=== PATIENT | male | born 1960 | race Caucasian/White ===

== ENCOUNTER 2019-05-04 08:38 | Emergency (ER) | payer OTHER ==
[2019-05-04] MEDS ORDERED: Diltiazem 50 MG/10 ML SDV IVPUSH ONE ×3 (08:58→09:29)
[2019-05-04] MEDS ORDERED: Sodium Chloride 0.9% 1,000 ML IV SCH (09:00)
--- NOTE | 2019-05-04 09:02 | EDM.PDOC ---
ED HPI GENERAL MEDICAL PROBLEM - General Chief Complaint: Cardiovascular Problem Stated Complaint: AFIB Time Seen by Provider: 05/04/19 08:47 Source of Information: Reports: Patient History Limitations: Reports: No Limitations - History of Present Illness INITIAL COMMENTS - FREE TEXT/NARRATIVE: Patient is a 58-year-old male who presents with complaints of "Afib". He states that he does have a history of A. fib with an ablation done approximate one year ago. He awoke around 4:00 this morning and was feeling fine and went back to sleep. States he woke up prior to coming to the ER and could feel palpitations in his chest. He put on his apple watch it showed that he was tachycardic. He states after his ablation 1 year ago he did go back into a normal sinus rhythm and has been that way ever since. He is currently on 240 mg of diltiazem extended release as well as Xarelto 20 mg daily and he did take all of his home medications this morning. He did consume 6 alcoholic drinks last night which she states is 3 more than he would normally drink. Other cardiac history is positive for mitral valve repair. He has no history of IN or chronic lung disease. He denies any shortness of breath or chest pain. States his only symptom is that he can feel the palpitations. - Related Data Allergies Allergy/AdvReac Type Severity Reaction Status Date / Time No Known Allergies Allergy Verified 05/04/19 08:43 Home Meds: Home Meds Diltiazem [Dilacor XR] 240 mg PO DAILY 05/04/19 [History] Fish Oil/[place]-3 Fatty Acids [Fish Oil 1,000 MG] 1,000 mg PO DAILY 05/04/19 [ History] Furosemide [Lasix] 0 mg PO DAILY 05/04/19 [History] Potassium Chloride 10 meq PO DAILY 05/04/19 [History] Rivaroxaban [Xarelto] 20 mg PO DAILY 05/04/19 [History] ED ROS GENERAL - Review of Systems Review Of Systems: See Below Constitutional: Reports: No Symptoms HEENT: Reports: No Symptoms Respiratory: Reports: No Symptoms Cardiovascular: Reports: Palpitations. Denies: Chest Pain, Dyspnea on Exertion Endocrine: Reports: No Symptoms ED EXAM, GENERAL - Physical Exam Exam: See Below Exam Limited By: No Limitations General Appearance: Alert, WD/WN, No Apparent Distress Respiratory/Chest: No Respiratory Distress, Lungs Clear, Normal Breath Sounds, No Accessory Muscle Use, Chest Non-Tender Cardiovascular: No Edema, No Murmur, Tachycardia, Irregularly Irregular Neurological: Alert, Oriented, Normal Cognition Psychiatric: Normal Affect, Normal Mood Skin Exam: Warm, Dry, Intact, Normal Color, No Rash EKG INTERPRETATION EKG Date: 05/04/19 Time: 08:41 Rhythm: Other (questionable flutter with 2:1 conduction) Rate (Beats/Min): 141 [place]: Normal P-Wave: Present (questionable flutter wave) QRS: Normal ST-T: Normal QT: Prolonged (311) Comparison: NA - No Prior EKG EKG Interpretation Comments: abnormal R-wave progression, late transition Course - Vital Signs Last Recorded V/S: Last Vital Signs Temp 97.5 F 05/04/19 08:45 Pulse 140 H 05/04/19 08:45 Resp 20 05/04/19 08:45 BP 138/100 H 05/04/19 08:45 Pulse Ox 98 05/04/19 08:45 - Orders/Labs/Meds Orders: Active Orders 24 hr Category Date Time Status EKG Documentation Completion [RC] STAT Care 05/04/19 09:02 Active EKG Documentation Completion [RC] STAT Care 05/04/19 09:19 Active EKG Documentation Completion [RC] STAT Care 05/04/19 09:45 Active Chest 1V Frontal [CR] Stat Exams 05/04/19 09:02 Taken Sodium Chloride 0.9% [Normal Saline] 1,000 ml Med 05/04/19 09:00 Active IV ASDIRECTED Medication Orders Sodium Chloride (Normal Saline) 1,000 mls @ 999 mls/hr IV ASDIRECTED RODRIGUEZ Last Admin: 05/04/19 09:11 Dose: 999 mls/hr Labs: Laboratory Tests 05/04/19 05/04/19 Range/Units 08:45 08:45 WBC 4.99 (4.23-9.07) K/mm3 RBC 5.14 (4.63-6.08) M/mm3 Hgb 16.2 (13.7-17.5) gm/dl Hct 44.6 (40.1-51.0) % MCV 86.8 (79.0-92.2) fl MCH 31.5 (25.7-32.2) pg MCHC 36.3 H (32.2-35.5) g/dl RDW Std Deviation 39.9 (35.1-43.9) fL Plt Count 204 (163-337) K/mm3 MPV 9.4 (9.4-12.3) fl Neut % (Auto) 70.8 H (34.0-67.9) % Lymph % (Auto) 12.8 L (21.8-53.1) % [place] % (Auto) 9.8 (5.3-12.2) % Eos % (Auto) 5.8 (0.8-7.0) Baso % (Auto) 0.6 (0.1-1.2) % Neut # (Auto) 3.53 (1.78-5.38) K/mm3 Lymph # (Auto) 0.64 L (1.32-3.57) K/mm3 [place] # (Auto) 0.49 (0.30-0.82) K/mm3 Eos # (Auto) 0.29 (0.04-0.54) K/mm3 Baso # (Auto) 0.03 (0.01-0.08) K/mm3 Sodium 144 (136-145) mEq/L Potassium 3.7 (3.5-5.1) mEq/L Chloride 107 (98-107) mEq/L Carbon Dioxide 26 (21-32) mEq/L Anion Gap 14.7 (5-15) BUN 16 (7-18) mg/dL Creatinine 1.1 (0.7-1.3) mg/dL Est Cr Clr Drug Dosing 76.06 mL/min Estimated GFR (MDRD) > 60 (>60) mL/min BUN/Creatinine Ratio 14.5 (14-18) Glucose 144 H (74-106) mg/dL Calcium 8.6 (8.5-10.1) mg/dL Total Bilirubin 0.5 (0.2-1.0) mg/dL AST 26 (15-37) U/L ALT 38 (16-63) U/L Alkaline Phosphatase 69 (46-116) U/L Troponin I 0.054 (0.00-0.056) ng/mL Total Protein 7.5 (6.4-8.2) g/dl Albumin 4.0 (3.4-5.0) g/dl Globulin 3.5 gm/dL Albumin/Globulin Ratio 1.1 (1-2) TSH 3rd Generation 1.369 (0.358-3.74) uIU/mL Meds: Medications Generic Name Dose Route Start Last Admin Trade Name Freq PRN Reason Stop Dose Admin Sodium Chloride 1,000 mls @ 999 mls/hr 05/04/19 09:00 05/04/19 09:11 Normal Saline IV 999 mls/hr ASDIRECTED RODRIGUEZ Administration Discontinued Medications Generic Name Dose Route Start Last Admin Trade Name Freq PRN Reason Stop Dose Admin Diltiazem HCl 10 mg 05/04/19 08:58 05/04/19 09:04 Cardizem IVPUSH 05/04/19 08:59 10 mg ONETIME ONE Administration Diltiazem HCl 10 mg 05/04/19 09:11 05/04/19 09:14 Cardizem IVPUSH 05/04/19 09:12 10 mg ONETIME ONE Administration Diltiazem HCl 20 mg 05/04/19 09:29 05/04/19 09:40 Cardizem IVPUSH 05/04/19 09:30 20 mg ONETIME ONE Administration - Re-Assessments/Exams Free Text/Narrative Re-Assessment/Exam: On personnel monitor, patient's rhythm does look regular and initial EKG does read sinus tachycardia at 141. I feel that with his history this is likely an atrial flutter with a 2-1 conduction which gives the appearance of regular P waves. I have ordered a 1 L bolus of normal saline as well as 10 mg of IV Cardizem. We'll try to slow his rhythm down and repeat the EKG. I have also ordered a CBC, CMP, troponin, and CXR. 05/04/19 09:10 Patient's heart rate remains in the 140s after the initial dose of Cardizem 10 mg IV. Her pressure continues to be stable. I will repeat a dose of Cardizem 10 mg IV now. 05/04/19 09:20 Patient's heart rate now varies from 110's to 130's. We did repeat the EKG which does show an atrial flutter at 115. 05/04/19 0928 HR continues to maintain a-flutter above 100. BP remains stable. I have ordered Cardizem 20mg IV to be given now. 05/04/19 10:21 Patient has been maintaining a heart rate from 70-90 for the last 45 minutes approximately. Lab work is unremarkable. Troponin is on the high end of normal at 0.054. Patient continues to be asymptomatic and is having no chest pain, shortness of breath, diaphoresis, or dizziness. It is likely that his troponin is due to demand ischemia. Discussed the options of trending the troponin with the patient to ensure they begin to trend downward; however, he does not want to stay to have that done as he has plans afternoon and he states that he feels fine and has had no symptoms of an IN. He states that he is staying only a couple blocks away and if he has any worsening symptoms he can return immediately. He is already anticoagulated as he takes Xarelto 20 mg daily. He also has taken his daily Cardizem medication which may keep his rate controlled. We will continue to watch him until around 11:00. If his heart rate remains controlled, we will let him go home. He does have a heart monitor on his watch and states that if the rate increases or if he develops any symptoms of chest pain, shortness of breath or dizziness he will return to the ER immediately. 05/04/19 11:03 Patient's heart rates been maintaining in the 80s, however is still atrial flutter. He continues to be asymptomatic and states that he feels good. He is comfortable with going home with instructions to return if anything should worsen. He will follow-up with his primary care and shaker operator when he gets back to [place]. Discharge instructions as noted. Departure - Departure Time of Disposition: 11:04 Disposition: Home, Self-Care 01 Condition: Fair Clinical Impression: Atrial flutter Qualifiers: Atrial flutter type: unspecified Qualified Code(s): I48.92 - Unspecified atrial flutter Instructions: Atrial Flutter Referrals: PCP,Not In Area [Primary Care Provider] - Forms: ED Department Discharge Additional Instructions: You were seen in the emergency department this morning for help with patient's any fast heart rate. You were found to be in atrial flutter in the 140s. You were given a total of 1 L of IV fluids and 40 mg of IV Cardizem. Your heart rate did slow down to the 80s but does remain in atrial flutter. As we discussed, your daily Cardizem will likely keep the rate controlled or you may convert to normal sinus rhythm at some point. We recommend that you monitor your heart rate and blood pressure at home. If you experience any increases in your heart rate or any chest pain, shortness of breath, dizziness, or any other abnormal symptoms, return to the emergency Department immediately. We recommend that when you return to [place] you follow-up with your primary care provider and/or shaker operator. Unfortunately do not have the ability to send the records directly to your provider through the computer system, however, they can request a copy be sent to them. Sepsis Event Note - Evaluation Sepsis Screening Result: No Definite Risk - Focused Exam Vital Signs: Vital Signs Temp Pulse Resp BP Pulse Ox 05/04/19 08:45 97.5 F 140 H 20 138/100 H 98 Date Exam was Performed: 05/04/19 Time Exam was Performed: 11:19 - My Orders Last 24 Hours: My Active Orders 05/04/19 09:00 Sodium Chloride 0.9% [Normal Saline] 1,000 ml IV ASDIRECTED 05/04/19 09:02 EKG Documentation Completion [RC] STAT Chest 1V Frontal [CR] Stat 05/04/19 09:19 EKG Documentation Completion [RC] STAT 05/04/19 09:45 EKG Documentation Completion [RC] STAT - Assessment/Plan Last 24 Hours: My Active Orders 05/04/19 09:00 Sodium Chloride 0.9% [Normal Saline] 1,000 ml IV ASDIRECTED 05/04/19 09:02 EKG Documentation Completion [RC] STAT Chest 1V Frontal [CR] Stat 05/04/19 09:19 EKG Documentation Completion [RC] STAT 05/04/19 09:45 EKG Documentation Completion [RC] STAT
--- NOTE | 2019-05-06 07:12 | CR ---
Chest: Frontal view of the chest was obtained. Comparison: Previous chest x-ray of 07/18/10. Heart size and mediastinum are stable. Previous sternotomy and prosthetic heart valve are noted. Lungs are clear with no acute parenchymal change. Bony structures are grossly intact. Impression: 1. Nothing acute is seen on frontal chest x-ray. Diagnostic code #2 This report was dictated in [place] Standard Time
== END 2019-05-04 11:25 | disposition home or self-care (01) ==
LOC: JD.ED 08:38
DX: I48.92 Unspecified atrial flutter (principal); Z79.01 Long term (current) use of anticoagulants; Z79.899 Other long term (current) drug therapy
CPT/HCPCS: 36415; 71045; 80053; 84443; 84484; 85025; 93005; 96361; 96374; 96376; 99285; J3490; J7030

== ENCOUNTER 2020-03-29 21:28 | Emergency (ER) | payer OTHER ==
[2020-03-29] MEDS ORDERED: HYDROmorphone 1 MG/ML Syringe IVPUSH STA (22:06)
[2020-03-29] MEDS ORDERED: Ondansetron 4 MG/2 ML SDV IVPUSH ONE (22:06)
--- NOTE | 2020-03-29 22:12 | EDM.PDOC ---
ED HPI GENERAL MEDICAL PROBLEM - General Chief Complaint: Abdominal Pain Stated Complaint: RT SIDE FLANK PAIN/ABDOMINAL PAIN, MINOR CHILLS Time Seen by Provider: 03/29/20 21:52 Source of Information: Reports: Patient History Limitations: Reports: No Limitations - History of Present Illness INITIAL COMMENTS - FREE TEXT/NARRATIVE: Mr. Plaza is a very pleasant 59-year-old gentleman who now presents to the ED with right upper quadrant abdominal pain since , 03/26/2020. He is unable to describe the character of the pain, other than "It's just there". He states that he also feels pain in his right flank. He has not been able to identify any modifiers to his pain, although he states that it did get worse after he had dinner consisting of a steak and mashed potatoes around 17:30 tonight. No associated nausea, vomiting, constipation, diarrhea, or urinary symptoms, however, he states that he has had intermittent slight chills for the past week or so. No prior similar symptoms. Of note, the patient states that he underwent a cholecystectomy around 1999. The patient states that he took some Tums around 20:30 night, which did not help his symptoms. Here in the ED, the patient's initial BP is found to be elevated at 171/109, otherwise, he is hemodynamically stable, afebrile, saturating 98% on room air. Prior to a few days ago, the patient denies having a recent fever, chills, sore throat, ear pain, nasal or sinus congestion, cough, dyspnea, chest pain, palpitations, nausea, vomiting, constipation, diarrhea, abdominal pain, urinary symptoms, recent weight gain or weight loss, recent bloody bowel movements or black bowel movements, recent joint aches, headaches, or rashes. The patient's PCP is in [place]. He already received an influenza vaccine this season. Right Abdominal Pain Score (Numeric/FACES): 3 - Related Data Allergies Allergy/AdvReac Type Severity Reaction Status Date / Time No Known Allergies Allergy Verified 03/29/20 21:52 Home Meds: Home Meds Diltiazem [Dilacor XR] 240 mg PO DAILY 05/04/19 [History] Fish Oil/[place]-3 Fatty Acids [Fish Oil 1,000 MG] 1,000 mg PO DAILY 05/04/19 [History] Furosemide [Lasix] 20 mg PO DAILY 05/04/19 [History] Rivaroxaban [Xarelto] 20 mg PO DAILY 05/04/19 [History] Past Medical History Cardiovascular History: Reports: Afib Musculoskeletal History: Reports: Fracture, Other (See Below) Other Musculoskeletal History: right knee surgery, r femur repair Endocrine/Metabolic History: Reports: Obesity/BMI 30+ - Past Surgical History HEENT Surgical History: Reports: Tonsillectomy Cardiovascular Surgical History: Reports: Cardiac Ablation, Other (See Below) Other Cardiovascular Surgeries/Procedures: valve repair, mitral. GI Surgical History: Reports: Cholecystectomy (around 1999) Social & Family History - Tobacco Use Tobacco Use Status *Q: Never Tobacco User Second Hand Smoke Exposure: No - Caffeine Use Caffeine Use: Reports: Coffee - Alcohol Use Days Per Week of Alcohol Use: 4 Number of Drinks Per Day: 3 Total Drinks Per Week: 12 - Recreational Drug Use Recreational Drug Use: No ED ROS GENERAL - Review of Systems Review Of Systems: Comprehensive ROS is negative, except as noted in HPI. ED EXAM, GENERAL - Physical Exam Exam: See Below Exam Limited By: No Limitations General Appearance: Alert, WD/WN, No Apparent Distress Eye Exam: Bilateral Eye: EOMI, Normal Inspection Ears: Normal External Exam, Hearing Grossly Normal Nose: Normal Inspection Throat/Mouth: Normal Inspection, Normal Lips, Normal Voice, No Airway Compromise Head: Atraumatic, Normocephalic Neck: Normal Inspection, Full Range of Motion Respiratory/Chest: No Respiratory Distress, Lungs Clear, Normal Breath Sounds, No Accessory Muscle Use Cardiovascular: Normal Peripheral Pulses, Regular Rate, Rhythm, No Gallop, No JVD, No Murmur, No Rub Peripheral Pulses: 3+: Radial (L), Radial (R) GI/Abdominal: Normal Bowel Sounds, Soft, No Organomegaly, No Distention, No Abnormal Bruit, No Mass, Tender (Quality patient reports the greatest pain felt in his far right abdomen, he is most tender to his right upper quadrant. No tenderness elsewhere.) Back Exam: Normal Inspection, Full Range of Motion. No: CVA Tenderness (L), CVA Tenderness (R) (The patient is able to identify pain felt in his right flank, but denies CVA tenderness) Extremities: Normal Inspection, Normal Range of Motion, No Pedal Edema, Normal Capillary Refill Neurological: Alert, Oriented, Normal Cognition, No Motor/Sensory Deficits Psychiatric: Normal Affect Skin Exam: Warm, Dry, Intact, Normal Color, No Rash Course - Vital Signs Last Recorded V/S: Last Vital Signs Temp 36.7 C 03/29/20 21:50 Pulse 64 03/29/20 21:50 Resp 20 03/29/20 21:50 BP 171/109 H 03/29/20 21:50 Pulse Ox 98 03/29/20 21:50 - Orders/Labs/Meds Orders: Active Orders 24 hr Category Date Time Status Abdomen Pelvis w Cont [CT] Stat Exams 03/29/20 22:06 Taken Sodium Chloride 0.9% [Normal Saline] 1,000 ml Med 03/29/20 22:15 Active IV ASDIRECTED Sodium Chloride 0.9% [Normal Saline] 100 ml Med 03/29/20 23:15 Active IV ASDIRECTED Medication Orders Sodium Chloride (Normal Saline) 1,000 mls @ 150 mls/hr IV ASDIRECTED RODRIGUEZ Last Admin: 03/29/20 22:24 Dose: 150 mls/hr Documented by: EVONCOU Sodium Chloride (Normal Saline) 100 mls @ 60 mls/hr IV ASDIRECTED RODRIGUEZ Last Admin: 03/30/20 01:08 Dose: 60 mls/hr Documented by: ONEIGIN Labs: Laboratory Tests 03/29/20 03/29/20 Range/Units 22:20 22:20 WBC 4.64 (4.23-9.07) K/mm3 RBC 4.64 (4.63-6.08) M/mm3 Hgb 14.7 D (13.7-17.5) gm/dl Hct 41.3 (40.1-51.0) % MCV 89.0 (79.0-92.2) fl MCH 31.7 (25.7-32.2) pg MCHC 35.6 H (32.2-35.5) g/dl RDW Std Deviation 40.9 (35.1-43.9) fL Plt Count 191 (163-337) K/mm3 MPV 9.1 L (9.4-12.3) fl Neutrophils % (Manual) 69 H (40-60) % Band Neutrophils % 2 (0-10) % Lymphocytes % (Manual) 14 L (20-40) % Atypical Lymphs % 0 % Monocytes % (Manual) 12 H (2-10) % Eosinophils % (Manual) 3 (0.8-7.0) % Basophils % (Manual) 0 L (0.2-1.2) Platelet Estimate Adequate RBC Morph Comment Normal Sodium 141 (136-145) mEq/L Potassium 3.7 (3.5-5.1) mEq/L Chloride 105 (98-107) mEq/L Carbon Dioxide 29 (21-32) mEq/L Anion Gap 10.7 (5-15) BUN 22 H (7-18) mg/dL Creatinine 1.3 (0.7-1.3) mg/dL Est Cr Clr Drug Dosing 63.55 mL/min Estimated GFR (MDRD) 56 (>60) mL/min BUN/Creatinine Ratio 16.9 (14-18) Glucose 105 (80-115) mg/dL Calcium 8.8 (8.5-10.1) mg/dL Magnesium 1.8 (1.8-2.4) mg/dl Total Bilirubin 0.6 (0.2-1.0) mg/dL AST 25 (15-37) U/L ALT 31 (16-63) U/L Alkaline Phosphatase 57 (46-116) U/L Total Protein 6.8 (6.4-8.2) g/dl Albumin 3.7 (3.4-5.0) g/dl Globulin 3.1 gm/dL Albumin/Globulin Ratio 1.2 (1-2) Lipase 71 L (73-393) U/L Meds: Medications Generic Name Dose Route Start Last Admin Trade Name Freq PRN Reason Stop Dose Admin Sodium Chloride 1,000 mls @ 150 mls/hr 03/29/20 22:15 03/29/20 22:24 Normal Saline IV 150 mls/hr ASDIRECTED RODRIGUEZ Administration Sodium Chloride 100 mls @ 60 mls/hr 03/29/20 23:15 03/30/20 01:08 Normal Saline IV 60 mls/hr ASDIRECTED RODRIGUEZ Administration Discontinued Medications Generic Name Dose Route Start Last Admin Trade Name Freq PRN Reason Stop Dose Admin Hydromorphone HCl 0.5 mg 03/29/20 22:06 03/29/20 22:24 Dilaudid IVPUSH 03/29/20 22:07 0.5 mg ONETIME STA Administration Iopamidol 100 ml 03/29/20 23:09 03/30/20 01:08 Isovue-300 (61%) IVPUSH 03/29/20 23:10 100 ml ONETIME ONE Administration Ondansetron HCl 4 mg 03/29/20 22:06 03/29/20 22:24 Zofran IVPUSH 03/29/20 22:07 4 mg ONETIME ONE Administration - Re-Assessments/Exams Free Text/Narrative Re-Assessment/Exam: 03/29/20 22:12 The cause of the patient's pain is not immediately obvious. I have ordered a work-up and includes blood work and a CT of his abdomen and pelvis with oral and IV contrast. In the meantime, the patient will be given IV Dilaudid, IV Zofran, and IV fluid. 03/29/20 23:43 The patient's CBC, CMP, magnesium level, and lipase are all unremarkable. 03/30/20 01:26 CT of the abdomen and pelvis with oral and IV contrast is read by [facility] as: 1. Hepatic steatosis. 2. Mild splenomegaly. 3. Ill-defined increased attenuation in the mesentery. Findings may be seen in the setting of systemic edema, portal hypertension, or inflammatory process such as sclerosing mesenteritis. No signs of hemorrhage, mass, or lymphadenopathy are seen. 03/30/20 01:33 Test results discussed with the patient. As above, today's work-up is unremarkable, with the exception of possible inflammation of his mesentery. The patient has not had recent weight loss, which would be expected with sclerosing mesenteritis. I recommended that if the patient's symptoms resolve, that no further evaluation is necessary, however, if they persist or recur, that he follow-up with his PCP for referral to a surgeon, who could potentially perform laparoscopy for diagnostic biopsy. The patient is in agreement. Departure - Departure Time of Disposition: 01:34 Disposition: Home, Self-Care 01 Condition: Good Clinical Impression: Abdominal pain of unknown etiology - Discharge Information *PRESCRIPTION DRUG MONITORING PROGRAM REVIEWED*: Not Applicable *COPY OF PRESCRIPTION DRUG MONITORING REPORT IN PATIENT NARCISA: Not Applicable Referrals: PCP,Not In Area [Ordering Only Provider] - Forms: ED Department Discharge Additional Instructions: You were seen in the emergency room for 3 days of right-sided abdominal pain radiating to your right back. Work-up in the ER included several blood tests as well as a CT of your abdomen and pelvis with oral and IV contrast. Your blood tests were completely unremarkable, while the CT scan indicated inflammation of your mesentery. The cause of your abdominal pain is not clear. 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 If your symptoms resolve, no further evaluation is necessary, however, if they continue or recur, we recommend that you follow-up with your PCP in [place] for referral to a surgeon, who could potentially perform a diagnostic laparoscopy. If any other problems, please do not hesitate to return to the ER. Sepsis Event Note (ED) - Evaluation Sepsis Screening Result: No Definite Risk - Focused Exam Vital Signs: Vital Signs Temp Pulse Resp BP Pulse Ox 03/29/20 21:50 36.7 C 64 20 171/109 H 98 - My Orders Last 24 Hours: My Active Orders 03/29/20 22:06 Abdomen Pelvis w Cont [CT] Stat 03/29/20 22:15 Sodium Chloride 0.9% [Normal Saline] 1,000 ml IV ASDIRECTED 03/29/20 23:15 Sodium Chloride 0.9% [Normal Saline] 100 ml IV ASDIRECTED - Assessment/Plan Last 24 Hours: My Active Orders 03/29/20 22:06 Abdomen Pelvis w Cont [CT] Stat 03/29/20 22:15 Sodium Chloride 0.9% [Normal Saline] 1,000 ml IV ASDIRECTED 03/29/20 23:15 Sodium Chloride 0.9% [Normal Saline] 100 ml IV ASDIRECTED
[2020-03-29] MEDS ORDERED: Sodium Chloride 0.9% 1,000 ML IV SCH (22:15)
[2020-03-29] MEDS ORDERED: Iopamidol 612 MG/ML 100 ML Bottle IVPUSH ONE (23:09)
[2020-03-29] MEDS ORDERED: Sodium Chloride 0.9% 100 ML IV SCH (23:15)
--- NOTE | 2020-03-30 10:23 | CT ---
PROCEDURE INFORMATION: Exam: CT Abdomen And Pelvis With Contrast Exam date and time: 03/30/2020 12:31 AM Age: 59 years old Clinical indication: Abdominal pain; Right upper quadrant (RUQ); Patient HX: PT symptoms onset 2-3 days ago. RUQ pain and tenderness with right flank pain TECHNIQUE: Imaging protocol: Computed tomography of the abdomen and pelvis with intravenous contrast. Radiation optimization: All CT scans at this facility use at least one of these dose optimization techniques: automated exposure control; mA and/or kV adjustment per patient size (includes targeted exams where dose is matched to clinical indication); or iterative reconstruction. Contrast material: ISOVUE 300MG; Contrast volume: 100 ml; Contrast route: INTRAVENOUS (IV); Other contrast: Oral, GASTROGRAFIN/BREEZA, 90; COMPARISON: No relevant prior studies available. FINDINGS: Liver: 3.1 cm cyst in the left lobe of the liver. The liver is low attenuation indicating hepatic steatosis. No other liver masses. Gallbladder and bile ducts: There has been prior cholecystectomy. No biliary duct dilation. Pancreas: Normal. No ductal dilation. Spleen: Spleen is mildly enlarged at 15 cm. Adrenal glands: Normal. No mass. Kidneys and ureters: Normal. No hydronephrosis. Stomach and bowel: Unremarkable. No obstruction. No mucosal thickening. Appendix: No evidence of appendicitis. Intraperitoneal space: There is ill-defined hyperattenuation in the mesentery. No free fluid or free air. Vasculature: Unremarkable. No abdominal aortic aneurysm. Lymph nodes: No mesenteric mass or lymphadenopathy is seen. Urinary bladder: Unremarkable as visualized. Reproductive: Unremarkable as visualized. Bones/joints: There are advanced degenerative changes in the spine and pelvis. Soft tissues: Small fat containing umbilical hernia. IMPRESSION: 1. Hepatic steatosis. 2. Mild splenomegaly. 3. Ill-defined increased attenuation in the mesentery. Findings may be seen in the setting of systemic edema, portal hypertension, or inflammatory process such as sclerosing mesenteritis. No signs of hemorrhage, mass, or lymphadenopathy are seen. Thank you for allowing us to participate in the care of your patient. Dictated and Authenticated by: Jose Alanis MD 03/30/2020 2:24 AM Central Time ([place] & [place]) JUAN
== END 2020-03-30 01:42 | disposition home or self-care (01) ==
LOC: JD.ED 21:28
DX: R10.11 Right upper quadrant pain (principal); E66.9 Obesity, unspecified; I48.91 Unspecified atrial fibrillation; Z68.39 Body mass index [BMI] 39.0-39.9, adult; Z90.49 Acquired absence of other specified parts of digestive tract; Z79.01 Long term (current) use of anticoagulants; Z79.899 Other long term (current) drug therapy
CPT/HCPCS: 36415; 74177; 80053; 83690; 83735; 85007; 85027; 96374; 96375; 99284; J1170; J2405; J7030; Q9967

== ENCOUNTER 2020-10-23 14:02 | Emergency (ER) | payer OTHER ==
[2020-10-23] MEDS ORDERED: Sodium Chloride 0.9% 10 ML Syringe FLUSH PRN (14:15)
[2020-10-23] MEDS ORDERED: Diltiazem 50 MG/10 ML SDV IVPUSH ONE (14:16)
[2020-10-23] MEDS ORDERED: Diltiazem 100 MG in Sodium Chloride 0.9% 100 ML IV SCH (14:30)
--- NOTE | 2020-10-23 14:44 | EDM.PDOC ---
ED HPI GENERAL MEDICAL PROBLEM - General Chief Complaint: Cardiovascular Problem Stated Complaint: FAST HEART RATE Time Seen by Provider: 10/23/20 14:12 Source of Information: Reports: Patient History Limitations: Reports: No Limitations - History of Present Illness INITIAL COMMENTS - FREE TEXT/NARRATIVE: The patient presents with a rapid heart rate. He noticed this after eating lunch today. He has a history of atrial fibrillation. He has had to have ablation before in 2019. This is the 3rd time in the past 3 weeks. He also had a heart valve replaced. He has no chest pain, shortness of breath, abdominal pain, nausea, vomiting or diarrhea. He says every time he goes into this. He needs to be cardioverted. Onset: Sudden, Gradual Duration: Minutes: Severity: Moderate Improves with: Reports: None Worsens with: Reports: None Associated Symptoms: Reports: No Other Symptoms - Related Data Allergies Allergy/AdvReac Type Severity Reaction Status Date / Time No Known Allergies Allergy Verified 10/23/20 14:12 Home Meds: Home Meds Diltiazem [Dilacor XR] 240 mg PO DAILY 05/04/19 [History] Furosemide [Lasix] 20 mg PO DAILY 05/04/19 [History] Rivaroxaban [Xarelto] 20 mg PO DAILY 05/04/19 [History] Dronedarone HCl [Multaq] 400 mg PO BID #60 tablet 10/23/20 [Rx] Past Medical History Cardiovascular History: Reports: Afib Musculoskeletal History: Reports: Fracture, Other (See Below) Other Musculoskeletal History: right knee surgery, r femur repair Endocrine/Metabolic History: Reports: Obesity/BMI 30+ - Past Surgical History HEENT Surgical History: Reports: Tonsillectomy Cardiovascular Surgical History: Reports: Cardiac Ablation, Other (See Below) Other Cardiovascular Surgeries/Procedures: valve repair, mitral. GI Surgical History: Reports: Cholecystectomy Social & Family History - Tobacco Use Tobacco Use Status *Q: Never Tobacco User - Caffeine Use Caffeine Use: Reports: None - Recreational Drug Use Recreational Drug Use: No ED ROS GENERAL - Review of Systems Review Of Systems: See Below Constitutional: Reports: No Symptoms HEENT: Reports: No Symptoms Respiratory: Reports: No Symptoms Cardiovascular: Reports: Palpitations. Denies: Chest Pain Endocrine: Reports: No Symptoms GI/Abdominal: Reports: No Symptoms : Reports: No Symptoms Musculoskeletal: Reports: No Symptoms ED EXAM, GENERAL - Physical Exam Exam: See Below Exam Limited By: No Limitations General Appearance: Alert, No Apparent Distress Ears: Normal External Exam Nose: Normal Inspection Head: Atraumatic, Normocephalic Neck: Normal Inspection Respiratory/Chest: No Respiratory Distress, Lungs Clear, Normal Breath Sounds Cardiovascular: No Murmur, Tachycardia, Irregularly Irregular GI/Abdominal: Soft, Non-Tender, No Organomegaly, No Mass Back Exam: Normal Inspection Extremities: Normal Inspection #1 Interpretation EKG Date: 10/23/20 Time: 14:29 Rhythm: A-Fib Rate (Beats/Min): 102 [place]: Normal P-Wave: Absent QRS: Normal ST-T: Normal QT: Normal #2 Interpretation EKG Date: 10/23/20 Time: 16:28 Rhythm: NSR Rate (Beats/Min): 66 [place]: Normal P-Wave: Present QRS: Normal ST-T: Normal QT: Normal AL/PQ Interval: 1st degree HB Course - Vital Signs Last Recorded V/S: Last Vital Signs Temp 98.4 F 10/23/20 15:40 Pulse 105 H 10/23/20 15:40 Resp 13 10/23/20 15:40 BP 114/98 H 10/23/20 15:40 Pulse Ox 98 10/23/20 15:40 - Orders/Labs/Meds Orders: Active Orders 24 hr Category Date Time Status Cardiac Monitoring [RC] . DIRECTED Care 10/23/20 14:15 Active EKG Documentation Completion [RC] STAT Care 10/23/20 14:16 Active Peripheral IV Care [RC] . DIRECTED Care 10/23/20 14:16 Active Diltiazem [Cardizem] 100 mg Med 10/23/20 14:30 Active Sodium Chloride 0.9% [Normal Saline] 100 ml IV TITRATE Sodium Chloride 0.9% [Saline Flush] Med 10/23/20 14:15 Active 10 ml FLUSH ASDIRECTED PRN Peripheral IV Insertion Adult [OM.PC] Stat Oth 10/23/20 14:15 Ordered Medication Orders Diltiazem HCl 100 mg/ Sodium (Chloride) 100 mls @ 10 mls/hr IV TITRATE RODRIGUEZ; Protocol Last Titration: 10/23/20 15:08 Dose: 15 mg/hr, 15 mls/hr Documented by: Admin: 10/23/20 14:24 Dose: 10 mg/hr, 10 mls/hr Documented by: LIZETH Sodium Chloride (Sodium Chloride 0.9% 10 Ml Syringe) 10 ml FLUSH ASDIRECTED PRN PRN Reason: Keep Vein Open Last Admin: 10/23/20 14:23 Dose: 10 ml Documented by: LIZETH Labs: Laboratory Tests 10/23/20 10/23/20 Range/Units 14:23 14:23 WBC 5.08 (4.23-9.07) K/mm3 RBC 4.98 (4.63-6.08) M/mm3 Hgb 15.7 (13.7-17.5) gm/dl Hct 43.7 (40.1-51.0) % MCV 87.8 (79.0-92.2) fl MCH 31.5 (25.7-32.2) pg MCHC 35.9 H (32.2-35.5) g/dl RDW Std Deviation 40.9 (35.1-43.9) fL Plt Count 204 (163-337) K/mm3 MPV 9.0 L (9.4-12.3) fl Neut % (Auto) 62.4 (34.0-67.9) % Lymph % (Auto) 17.7 L (21.8-53.1) % [place] % (Auto) 13.6 H (5.3-12.2) % Eos % (Auto) 5.5 (0.8-7.0) Baso % (Auto) 0.6 (0.1-1.2) % Neut # (Auto) 3.17 (1.78-5.38) K/mm3 Lymph # (Auto) 0.90 L (1.32-3.57) K/mm3 [place] # (Auto) 0.69 (0.30-0.82) K/mm3 Eos # (Auto) 0.28 (0.04-0.54) K/mm3 Baso # (Auto) 0.03 (0.01-0.08) K/mm3 Sodium 142 (136-145) mEq/L Potassium 3.5 (3.5-5.1) mEq/L Chloride 105 (98-107) mEq/L Carbon Dioxide 25 (21-32) mEq/L Anion Gap 15.5 H (5-15) BUN 22 H (7-18) mg/dL Creatinine 1.4 H (0.7-1.3) mg/dL Est Cr Clr Drug Dosing 57.21 mL/min Estimated GFR (MDRD) 52 (>60) mL/min BUN/Creatinine Ratio 15.7 (14-18) Glucose 152 H (70-99) mg/dL Calcium 8.1 L (8.5-10.1) mg/dL Total Bilirubin 1.0 (0.2-1.0) mg/dL AST 17 (15-37) U/L ALT 28 (16-63) U/L Alkaline Phosphatase 57 (46-116) U/L Troponin I < 0.017 (0.00-0.056) ng/mL Total Protein 6.9 (6.4-8.2) g/dl Albumin 3.7 (3.4-5.0) g/dl Globulin 3.2 gm/dL Albumin/Globulin Ratio 1.2 (1-2) Meds: Medications Generic Name Dose Route Start Last Admin Trade Name Freq PRN Reason Stop Dose Admin Diltiazem HCl 100 mg/ Sodium 100 mls @ 10 mls/hr 10/23/20 14:30 10/23/20 15:08 Chloride IV 15 mg/hr TITRATE RODRIGUEZ 15 mls/hr Titration Protocol 10 MG/HR Sodium Chloride 10 ml 10/23/20 14:15 10/23/20 14:23 Sodium Chloride 0.9% 10 Ml Syringe FLUSH 10 ml ASDIRECTED PRN Administration Keep Vein Open Discontinued Medications Generic Name Dose Route Start Last Admin Trade Name Freq PRN Reason Stop Dose Admin Diltiazem HCl 10 mg 10/23/20 14:16 10/23/20 14:20 Diltiazem 50 Mg/10 Ml Sdv IVPUSH 10/23/20 14:17 10 mg ONETIME ONE Administration Midazolam HCl Confirm 10/23/20 16:11 Midazolam 1 Mg/Ml 2 Ml Sdv Administered 10/23/20 16:12 Dose 4 mg .ROUTE .STK-MED ONE - Re-Assessments/Exams Free Text/Narrative Re-Assessment/Exam: 10/23/20 14:43 I ordered an IV saline lock, cardizem, 10mg bolus IV, cardizem drip at 10mg/hr, labs, and EKG. His EKG shows atrial fibration with RVR. he was as high as 140s. 10/23/20 16:37 His CBC looks good. His creatinine was elevated at 1.4. His troponin is negative. His slowed down some but he did not convert. He says every time he needs to be cardioverted. I [facility] specialist Dr Rico and he thought it was okay to go ahead with the cardioversion. He wanted him on an antiarrhythmic dronedarone 400mg BID. He wanted the patient to follow up with them for possible repeat ablation. I had my LEGAL COMPLIANCE OFFICER come in and sedate the patient and I cardioverted him with 100 kirt successfully. He feels better now. Repeat EKG shows a NSR. 10/23/20 16:42 Departure - Departure Time of Disposition: 16:45 Disposition: Home, Self-Care 01 Condition: Good Clinical Impression: Atrial fibrillation Qualifiers: Atrial fibrillation type: paroxysmal Qualified Code(s): I48.0 - Paroxysmal atrial fibrillation Prescriptions: Dronedarone HCl [Multaq] 400 mg PO BID #60 tablet Referrals: PCP,Not In Area [Primary Care Provider] - Forms: ED Department Discharge Additional Instructions: Take your medications as prescribed. Take the dronedarone 400mg by mouth 2 times per day. Follow up with cardiology at [facility] within the next week. Sepsis Event Note (ED) - Evaluation Sepsis Screening Result: No Definite Risk - Focused Exam Vital Signs: Vital Signs Temp Pulse Resp BP Pulse Ox 10/23/20 15:40 98.4 F 105 H 13 114/98 H 98 10/23/20 14:44 11 L 149/88 H 95 10/23/20 14:13 98.4 F 127 H 13 127/97 H 93 L - My Orders Last 24 Hours: My Active Orders 10/23/20 14:15 Cardiac Monitoring [RC] . DIRECTED Sodium Chloride 0.9% [Saline Flush] 10 ml FLUSH ASDIRECTED PRN Peripheral IV Insertion Adult [OM.PC] Stat 10/23/20 14:16 EKG Documentation Completion [RC] STAT Peripheral IV Care [RC] . DIRECTED 10/23/20 14:30 Diltiazem [Cardizem] 100 mg Sodium Chloride 0.9% [Normal Saline] 100 ml IV TITRATE - Assessment/Plan Last 24 Hours: My Active Orders 10/23/20 14:15 Cardiac Monitoring [RC] . DIRECTED Sodium Chloride 0.9% [Saline Flush] 10 ml FLUSH ASDIRECTED PRN Peripheral IV Insertion Adult [OM.PC] Stat 10/23/20 14:16 EKG Documentation Completion [RC] STAT Peripheral IV Care [RC] . DIRECTED 10/23/20 14:30 Diltiazem [Cardizem] 100 mg Sodium Chloride 0.9% [Normal Saline] 100 ml IV TITRATE
[2020-10-23] MEDS ORDERED: Midazolam 1 MG/ML 2 ML SDV ONE (16:11)
--- NOTE | 2020-10-23 16:17 | PCM.PREANE ---
Preanesthetic Assessment - Procedure Proposed Procedure: cardioversion - Anesthesia/Transfusion/Family Hx Anesthesia History: Prior Anesthesia Without Reaction Family History of Anesthesia Reaction: No Transfusion History: No Prior Transfusion(s) - Review of Systems General: No Symptoms Pulmonary: No Symptoms Cardiovascular: Palpitations (started today) Gastrointestinal: No Symptoms Neurological: No Symptoms Other: Reports: None - Physical Assessment NPO Status Date: 10/23/20 NPO Status Time: 12:30 (hot hamburger) Vital Signs: Last Vital Signs Temp 98.4 F 10/23/20 15:40 Pulse 105 H 10/23/20 15:40 Resp 13 10/23/20 15:40 BP 114/98 H 10/23/20 15:40 Pulse Ox 98 10/23/20 15:40 Height: 5 ft 10 in Weight: 122.47 kg ASA Class: 2E Mental Status: Alert & Oriented x3 Airway Class: Mallampati = 1 Dentition: Reports: Normal Dentition Thyro-Mental Finger Breadths: 3 Mouth Opening Finger Breadths: 3 ROM/Head Extension: Full Lungs: Clear to Auscultation, Normal Respiratory Effort Cardiovascular: Regular Rate, Regular Rhythm - Lab Values: Laboratory Last Values WBC 5.08 K/mm3 (4.23-9.07) 10/23/20 14:23 RBC 4.98 M/mm3 (4.63-6.08) 10/23/20 14:23 Hgb 15.7 gm/dl (13.7-17.5) 10/23/20 14:23 Hct 43.7 % (40.1-51.0) 10/23/20 14:23 MCV 87.8 fl (79.0-92.2) 10/23/20 14:23 MCH 31.5 pg (25.7-32.2) 10/23/20 14:23 MCHC 35.9 g/dl (32.2-35.5) H 10/23/20 14:23 RDW Std Deviation 40.9 fL (35.1-43.9) 10/23/20 14:23 Plt Count 204 K/mm3 (163-337) 10/23/20 14:23 MPV 9.0 fl (9.4-12.3) L 10/23/20 14:23 Neut % (Auto) 62.4 % (34.0-67.9) 10/23/20 14:23 Lymph % (Auto) 17.7 % (21.8-53.1) L 10/23/20 14:23 [place] % (Auto) 13.6 % (5.3-12.2) H 10/23/20 14:23 Eos % (Auto) 5.5 (0.8-7.0) 10/23/20 14:23 Baso % (Auto) 0.6 % (0.1-1.2) 10/23/20 14:23 Neut # (Auto) 3.17 K/mm3 (1.78-5.38) 10/23/20 14:23 Lymph # (Auto) 0.90 K/mm3 (1.32-3.57) L 10/23/20 14:23 [place] # (Auto) 0.69 K/mm3 (0.30-0.82) 10/23/20 14:23 Eos # (Auto) 0.28 K/mm3 (0.04-0.54) 10/23/20 14:23 Baso # (Auto) 0.03 K/mm3 (0.01-0.08) 10/23/20 14:23 Sodium 142 mEq/L (136-145) 10/23/20 14:23 Potassium 3.5 mEq/L (3.5-5.1) 10/23/20 14:23 Chloride 105 mEq/L (98-107) 10/23/20 14:23 Carbon Dioxide 25 mEq/L (21-32) 10/23/20 14:23 Anion Gap 15.5 (5-15) H 10/23/20 14:23 BUN 22 mg/dL (7-18) H 10/23/20 14:23 Creatinine 1.4 mg/dL (0.7-1.3) H 10/23/20 14:23 Est Cr Clr Drug Dosing 57.21 mL/min 10/23/20 14:23 Estimated GFR (MDRD) 52 mL/min (>60) 10/23/20 14:23 BUN/Creatinine Ratio 15.7 (14-18) 10/23/20 14:23 Glucose 152 mg/dL (70-99) H 10/23/20 14:23 Calcium 8.1 mg/dL (8.5-10.1) L 10/23/20 14:23 Total Bilirubin 1.0 mg/dL (0.2-1.0) 10/23/20 14:23 AST 17 U/L (15-37) 10/23/20 14:23 ALT 28 U/L (16-63) 10/23/20 14:23 Alkaline Phosphatase 57 U/L (46-116) 10/23/20 14:23 Troponin I < 0.017 ng/mL (0.00-0.056) 10/23/20 14:23 Total Protein 6.9 g/dl (6.4-8.2) 10/23/20 14:23 Albumin 3.7 g/dl (3.4-5.0) 10/23/20 14:23 Globulin 3.2 gm/dL 10/23/20 14:23 Albumin/Globulin Ratio 1.2 (1-2) 10/23/20 14:23 - Allergies Allergies/Adverse Reactions: Allergies Allergy/AdvReac Type Severity Reaction Status Date / Time No Known Allergies Allergy Verified 10/23/20 14:12 - Blood Blood Available: No - Acknowledgements Anesthesia Type Planned: MAC Pt an Appropriate Candidate for the Planned Anesthesia: Yes Alternatives and Risks of Anesthesia Discussed w Pt/Guardian: Yes Pt/Guardian Understands and Agrees with Anesthesia Plan: Yes PreAnesthesia Questionnaire Cardiovascular History: Reports: Afib Respiratory History: Reports: None Musculoskeletal History: Reports: Fracture, Other (See Below) Other Musculoskeletal History: right knee surgery, r femur repair Endocrine/Metabolic History: Reports: Obesity/BMI 30+ - Past Surgical History HEENT Surgical History: Reports: Tonsillectomy Cardiovascular Surgical History: Reports: Cardiac Ablation, Other (See Below) Other Cardiovascular Surgeries/Procedures: valve repair, mitral. GI Surgical History: Reports: Cholecystectomy - SUBSTANCE USE Tobacco Use Status *Q: Never Tobacco User Tobacco Use Within Last Twelve Months: No Second Hand Smoke Exposure: No Days Per Week of Alcohol Use: 4 Number of Drinks Per Day: 3 Total Drinks Per Week: 12 Recreational Drug Use History: No - HOME MEDS Home Medications: Home Meds Diltiazem [Dilacor XR] 240 mg PO DAILY 05/04/19 [History] Furosemide [Lasix] 20 mg PO DAILY 05/04/19 [History] Rivaroxaban [Xarelto] 20 mg PO DAILY 05/04/19 [History] - CURRENT (IN HOUSE) MEDS Current Meds: Current Medications Diltiazem HCl 100 mg/ Sodium (Chloride) 100 mls @ 10 mls/hr IV TITRATE RODRIGUEZ; Protocol Last Titration: 10/23/20 15:08 Dose: 15 mg/hr, 15 mls/hr Documented by: Sodium Chloride (Sodium Chloride 0.9% 10 Ml Syringe) 10 ml FLUSH ASDIRECTED PRN PRN Reason: Keep Vein Open Last Admin: 10/23/20 14:23 Dose: 10 ml Documented by: Discontinued Medications Diltiazem HCl (Diltiazem 50 Mg/10 Ml Sdv) 10 mg IVPUSH ONETIME ONE Stop: 10/23/20 14:17 Last Admin: 10/23/20 14:20 Dose: 10 mg Documented by:
== END 2020-10-23 17:34 | disposition home or self-care (01) ==
LOC: JD.ED 14:02
DX: I48.0 Paroxysmal atrial fibrillation (principal); E66.9 Obesity, unspecified; Z79.01 Long term (current) use of anticoagulants; Z68.38 Body mass index [BMI] 38.0-38.9, adult
CPT/HCPCS: 36415; 80053; 84484; 85025; 92960; 93005; 96365; 96366; 99285; J2250; J3490; 00410; 93010; 99140; 99284

== ENCOUNTER 2023-01-30 16:28 | Emergency (ER) | payer OTHER | END 2023-01-30 17:15 | disposition home or self-care (01) | LOC: JD.ED 16:28 | DX: I48.3 Typical atrial flutter (principal); E66.9 Obesity, unspecified; Z68.41 Body mass index [BMI] 40.0-44.9, adult; Z79.899 Other long term (current) drug therapy | CPT/HCPCS: 93010; 99284 ==

== ENCOUNTER 2023-02-13 16:54 | Emergency (ER) | payer OTHER ==
[2023-02-13 18:09] LABS: CORONAVIRUS COVID-19 NAA NEGATIVE (NEGATIVE); INFLUENZA A NAA POSITIVE (NEGATIVE); RESPIRATORY SYNCYTIAL VIR NAA NEGATIVE (NEGATIVE)
[2023-02-13 18:10] LABS: BASOPHILS PERCENT AUTO 0.4 % (0.0-1.0); EOSINOPHILS PERCENT AUTO 0.1 % (0.0-6.0); HEMATOCRIT 40.4 % (42.0-52.0); HEMOGLOBIN 14.4 gm/dl (14.0-18.0); IMMATURE GRAN ABSOLUTE AUTO 0.03 K/mm3 (0.00-0.05); IMMATURE GRAN PERCENT AUTO 0.4 % (0.0-0.4); LYMPHOCYTES ABSOLUTE AUTO 0.5 K/mm3 (1.0-4.8); LYMPHOCYTES PERCENT AUTO 7.3 % (24.0-44.0); MEAN CORPUSCULAR HEMOGLOBIN 31.2 pg (28.0-32.0); MEAN CORPUSCULAR HGB CONC 35.6 g/dl (32.0-36.0); MEAN CORPUSCULAR VOLUME 87.4 fl (83.0-99.0); MEAN PLATELET VOLUME 9.1 fl (9.4-12.4); MONOCYTES PERCENT AUTO 29.1 % (0.0-8.0); NEUTROPHILS ABSOLUTE AUTO 4.4 K/mm3 (1.8-7.7); NEUTROPHILS PERCENT AUTO 62.7 % (41.0-71.0); PLATELET COUNT,PLT 156 K/mm3 (150-400); RED BLOOD CELL COUNT 4.62 M/mm3 (4.52-5.90); WHITE BLOOD CELL COUNT,WBC 6.98 K/mm3 (3.9-11.3)
[2023-02-13 18:33] LABS: ANION GAP 14.7 (5-15); BILIRUBIN TOTAL 1.2 mg/dL (0.2-1.0); BUN/CREATININE RATIO 10.6 (14-18); C-REACTIVE PROTEIN 5.5 mg/dL (<1.0); CALCIUM 8.6 mg/dL (8.5-10.1); CREATININE 1.6 mg/dL (0.7-1.3); EST CRCL DRUG DOSING (CG) 49.68 mL/min; POTASSIUM,K 3.7 mEq/L (3.5-5.1)
[2023-02-13] MEDS ORDERED: Furosemide 40 MG/4 ML VIAL IVPUSH ONE (18:46)
[2023-02-13] MEDS ORDERED: Oseltamivir 75 MG Cap PO ONE (18:54)
== END 2023-02-13 21:03 | disposition home or self-care (01) ==
LOC: JD.ED 16:54
DX: J10.1 Influenza due to other identified influenza virus with other respiratory manifestations (principal); I50.30 Unspecified diastolic (congestive) heart failure; E66.9 Obesity, unspecified; Z68.41 Body mass index [BMI] 40.0-44.9, adult; Z20.822 Contact with and (suspected) exposure to COVID-19
CPT/HCPCS: 0241U; 36415; 71046; 80053; 83880; 84484; 85025; 86140; 93005; 96374; 99285; A9270; J1940; 93010; 99284